=== PATIENT | male | born 1940 | race Caucasian/White ===

== ENCOUNTER 2024-03-23 14:40 | Emergency (ER) | payer MEDICARE ==
[~2024-03-23] VITALS: Ht 157.5 cm; Wt 47.2 kg
[~2024-03-23 14:40] MED LIST: ALTOPREV40 MG PO; ASPIRIN EC81 MG PO; CENTRUM ADULTS1 EACH PO; CLOPIDOGREL75 MG PO; COREG6.25 MG PO; ERYTHROMYCIN 2%60 ML; FISH OIL 1,001000 M1 PO; FLOMAX0.4 MG PO; MURO-12815 M1; PANTOPRAZOLE SO40 MG PO; PRED MILD5 ML; VASOTEC5 MG PO; VITAMIN D350 MCG PO
[2024-03-23 15:21] VITALS: PULSE 58; RESP 16; TEMP 98.2; O2SAT 100
[2024-03-23] MEDS: TETANUS/DIPHTHERIA TOX ADULT 0.5 ML SYR IM ONE (15:37)
[2024-03-23] MEDS: TRAMADOL HCL 50 MG TAB PO ONE (15:41)
== END 2024-03-23 15:52 | disposition home or self-care (01) ==
LOC: ER 15:23
DX: S61.012A Laceration without foreign body of left thumb without damage to nail, initial encounter (principal); W27.0XXA Contact with workbench tool, initial encounter; Y92.89 Other specified places as the place of occurrence of the external cause; Z95.1 Presence of aortocoronary bypass graft; Z95.810 Presence of automatic (implantable) cardiac defibrillator
CPT/HCPCS: 90714; 99283

== ENCOUNTER 2024-12-07 11:22 | Emergency (ER) | payer MEDICARE ==
[~2024-12-07] VITALS: Ht 157.5 cm; Wt 47.6 kg
[2024-12-07 11:57] VITALS: PULSE 69; RESP 16; TEMP 98
[2024-12-07 14:41] VITALS: BP 120/77; PULSE 74; RESP 16; TEMP 98; O2SAT 100
== END 2024-12-07 14:42 | disposition home or self-care (01) ==
LOC: ER 12:50
DX: S01.20XA Unspecified open wound of nose, initial encounter (principal); W26.8XXA Contact with other sharp object(s), not elsewhere classified, initial encounter; Y93.E1 Activity, personal bathing and showering; Y92.89 Other specified places as the place of occurrence of the external cause; I25.10 Atherosclerotic heart disease of native coronary artery without angina pectoris; Z95.810 Presence of automatic (implantable) cardiac defibrillator; Z95.1 Presence of aortocoronary bypass graft
CPT/HCPCS: 99283